=== PATIENT | female | born 1950 | race African-American/Black ===

== ENCOUNTER 2018-07-23 14:59 | Emergency (ER) | payer MEDICARE, OTHER ==
[~2018-07-23] VITALS: Ht 165.1 cm; Wt 82.1 kg
[~2018-07-23 14:59] MED LIST: LEVE500T54 PO; LISI10TA2 PO; PHEN64.8 PO; TRAM50TA PO
--- NOTE | 2018-07-23 15:06 | NUR ---
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 EDP NOTIFIED OF PT ARRIVAL.
[2018-07-23 15:21] VITALS: BP 177/99
--- NOTE | 2018-07-23 15:58 | DIREP ---
PROCEDURE:XRAY ANKLE MIN 3VWS-LT COMPARISON:[facility], [place], ANKLE 3 VIEW LEFT, 05/21/2014, 08:43 AM. INDICATIONS:FALL, LEFT ANKLE PAIN FINDINGS: BONES:There is a nondisplaced fracture of the distal shaft of the fibula. No other fracture is seen. JOINTS:Normal. SOFT TISSUES:Soft tissue swelling is seen of the lateral ankle. OTHER:No additional findings. CONCLUSION:There is soft tissue swelling of the lateral ankle with a nondisplaced fracture of the distal shaft of the fibula. Dictated by: Jerald Metz M.D. on 07/23/2018 at 03:55 PM
[2018-07-23] MEDS ORDERED: TORADOL ONE (16:00)
[2018-07-23] MEDS ORDERED: TORADOL IM ONE (16:00)
--- NOTE | 2018-07-23 16:00 | ER.PDOC ---
General Chief Complaint: Extremities Stated Complaint: FOOT INJURY Time seen by MD: 15:30 Source: patient History of Present Illness Initial Comments Pt states she was walking and twisted her left ankle. It has hurt severely since then. Onset: just prior to arrival Recent Injury: Yes Where: street Severity: moderate Exacerbated By: walking movement Relieved By: rest Prior symptoms/Treatment: No Similar symptoms previous, No Recenly Seen, No Treated by Doctor, No Recently Hospitalized Allergies: Coded Allergies: phenytoin sodium (Verified Allergy, Unknown, 05/06/14) phenytoin sodium extended (Verified Allergy, Unknown, 05/06/14) Home Meds Reported Medications Tramadol Hcl (TRAMADOL HCL) 50 Mg Tablet, 50 MG PO Q6HR PRN for PAIN, TABLET 05/06/14 Lisinopril (LISINOPRIL) 10 Mg Tablet, 10 MG PO DAILY 09/16/13 Levetiracetam (KEPPRA) 500 Mg Tablet, 500 MG PO BID 09/16/13 Phenobarbital (PHENOBARBITAL) 64.8 Mg Tablet, 64.8 MG PO DAILY 09/16/13 Past Medical History Medical History: hypertension Surgical History: tubal, other LMP (females 10-50): postmenopause Social History Smoking: non-smoker Alcohol Use: none Drug Use: none Reviewed Nursing Reviewed: Vital Signs, Abn. Noted, Nursing Assessment Review of Systems Constitutional: denies no symptoms reported, denies see HPI, denies chills, denies diaphoresis, denies fever, denies malaise, denies weakness, denies other Gastrointestinal: denies no symptoms reported, denies see HPI, denies abdominal pain, denies constipation, denies diarrhea, denies nausea, denies vomiting, denies other Musculoskeletal: see HPI Physical Exam General Appearance: Alert, No Apparent Distress Lower Extremity: tenderness (acutely tender with significant STS to left ankle lateral malleolus; nontender medial malleolus;nontender foot;DP/PT 2+;brisk cap refill all digits;decr ROM Flex Ext ankle) Joint Exam: joints nml, nml ROM, nml gait/weight bearing Vascular: no vascular compromise, pulses full/equal Neuro/Psych: sensation nml, motor nml, oriented x3, CN's nml as tested, mood/ affect nml Skin: color nml, warm/dry, no rash Back/Neck: nml inspection EENT: eyes inspection nml, ENT inspection nml, pharynx nml Respiratory: no resp distress, breath sounds nml CVS: reg rate & rhythm, heart sounds nml Abdomen: non-tender, no organomegaly, no bruit/mass Results/Orders Results/Orders X rays ankled and foot NAD Departure Time of Disposition: 15:56 Disposition: 01 HOME, SELF-CARE Impression: Primary Impression: Ankle sprain Condition: Stable Patient Instructions: Ankle Sprain, Acute, with Phase I Rehab-SportsMed Referrals: PCP,UNKNOWN (PCP) PRIMARY CARE PROVIDER Comments Ibuprofen 400 mg 1-2 po q 6 prn pain #30 get ankle brace at drug store see your family doctor in 3-4 days keep propped up and apply ice pack for 5 min at a time for next 2 days Duration or Time Spent with Pa: HOMERO VENEGAS MD Jul 23, 2018 16:00
[2018-07-23 16:09] VITALS: BP 172/86
--- NOTE | 2018-07-23 16:25 | DIREP ---
PROCEDURE:XRAY FOOT MIN 3 VWS-LT COMPARISON:None. INDICATIONS:FALL, LEFT FOOT PAIN FINDINGS: BONES:No acute fracture. Calcaneal spurring. JOINTS:Moderate osteoarthritis in the 1st MP and IP joints.. SOFT TISSUES:Normal. OTHER:No additional findings. CONCLUSION: 1. Moderate osteoarthritis with no acute bony abnormalities. Dictated by: Abdifatah Hayes M.D. on 07/23/2018 at 04:22 PM
--- NOTE | 2018-07-23 16:40 | NUR ---
WALKING BOOT WALKING BOOT APPLIED TO LEFT LEG.
[2018-07-23 17:34] VITALS: BP 172/86
== END 2018-07-23 17:02 | disposition home or self-care (01) ==
LOC: ER 14:59
DX: S82.832A Other fracture of upper and lower end of left fibula, initial encounter for closed fracture (principal); I10 Essential (primary) hypertension; Z98.51 Tubal ligation status; Z88.8 Allergy status to other drugs, medicaments and biological substances; Z79.891 Long term (current) use of opiate analgesic; Z79.899 Other long term (current) drug therapy; X50.1XXA Overexertion from prolonged static or awkward postures, initial encounter; Y93.01 Activity, walking, marching and hiking; Y92.410 Unspecified street and highway as the place of occurrence of the external cause; Y99.8 Other external cause status
CPT/HCPCS: 73610; 73630; 96372; 99284; J1885